=== PATIENT | male | born 1975 | race Caucasian/White ===

== ENCOUNTER → 2024-06-18 14:20 | Outpatient (REF) | payer OTHER, SELFPAY | LOC: RAD 14:20 | PROVIDERS: ATTENDING PHYSICIAN Physician Assistant | DX: R13.10 Dysphagia, unspecified (principal) | CPT/HCPCS: 70360 ==

== ENCOUNTER → 2024-08-20 12:41 | Outpatient (REF) | payer OTHER, SELFPAY | LOC: RAD 12:41 | PROVIDERS: ATTENDING PHYSICIAN Physician Assistant | DX: M25.512 Pain in left shoulder (principal); M25.561 Pain in right knee | CPT/HCPCS: 73030; 73564 ==

== ENCOUNTER → 2024-09-03 06:19 | Day surgery (SDC) | payer OTHER, SELFPAY | LOC: GI 06:19 | PROVIDERS: ATTENDING PHYSICIAN Internal Medicine | DX: Z12.11 Encounter for screening for malignant neoplasm of colon (principal); K57.30 Diverticulosis of large intestine without perforation or abscess without bleeding; K63.5 Polyp of colon | CPT/HCPCS: 45385; 88305 ==

== ENCOUNTER → 2025-07-28 10:05 | Outpatient (REF) | payer OTHER, SELFPAY | LOC: RAD 10:05 | PROVIDERS: ATTENDING PHYSICIAN Student in an Organized Health Care Education/Training Program | DX: M54.2 Cervicalgia (principal) | CPT/HCPCS: 76536 ==